=== PATIENT | male | born 1950 | race African-American/Black ===

== ENCOUNTER 2024-04-16 15:25 | Emergency (ER) | payer OTHER ==
[~2024-04-16] VITALS: Ht 190.5 cm; Wt 98.0 kg
[2024-04-16] MEDS: SODIUM CHLORIDE 0.9% 1,000 ML IV ONE (15:45)
[2024-04-16 16:05] LABS: Basophils # (auto) 0 10 ^3/uL (0-0.2); Basophils % (auto) 0.5 % (0.0-2.0); Eosinophils # (auto) 0.3 10 ^3/uL (0-0.8); Eosinophils % (auto) 5.5 % (0.0-7.0); Hematocrit 32.8 % (41.0-53.0); Hemoglobin 11.3 g/dL (13.5-17.5); Lymphocytes # (auto) 2.4 10 ^3/uL (0.4-5.4); Lymphocytes % (auto) 44.5 % (10.0-50.0); Mean Corpuscular Hgb Conc. 34.3 g/dL (32.0-36.0); Mean Corpuscular Volume 96.2 fL (80.0-100.0); Monocytes # (auto) 0.5 10 ^3/uL (0-1.3); Monocytes % (auto) 9.6 % (0.0-12.0); Neutrophils # (auto) 2.2 10 ^3/uL (1.6-8.6); Neutrophils % (auto) 39.9 % (37.0-80.0); Nucleated Red Blood Cells % 0.1 %; Red Blood Cells 3.41 10^6/uL (4.5-5.90); Red Cell Distribution Width 16.8 % (11.8-14.3); White Blood Cell 5.4 10^3/uL (4.4-10.8)
[2024-04-16 16:20] LABS: Chloride 98 mmol/L (98-107); Sodium 137 mmol/L (136-145)
[2024-04-16 16:21] LABS: Anion Gap 9 (5-15); Carbon Dioxide 30 mmol/L (20-30)
[2024-04-16 16:22] LABS: Calcium 9.4 mg/dL (8.7-10.4)
[2024-04-16 16:26] LABS: BUN/Creatinine Ratio 5.9 (10.0-20.0); Blood Urea Nitrogen 8 mg/dL (9-23); Glucose 106 mg/dL (74-106)
[2024-04-16 16:37] LABS: Potassium 2.4 mmol/L (3.5-5.1)
[2024-04-16] MEDS: ONDANSETRON HCL 4 MG/2 ML VIAL ONE (16:43)
[2024-04-16] MEDS: ONDANSETRON HCL 4 MG/2 ML VIAL IV ONE (16:45)
[2024-04-16] MEDS: POTASSIUM EFFERVESENT TAB 25 MEQ PO ONE (17:47)
[2024-04-16] MEDS: POTASSIUM CHL 20MEQ/100ML 100 ML IV SCH (17:48)
[2024-04-16 17:59] VITALS: PULSE 96; RESP 16; O2SAT 100
[2024-04-16 19:35] VITALS: PULSE 86; RESP 16; O2SAT 97
[2024-04-16 22:23] VITALS: BP 115/57; PULSE 82; RESP 23; TEMP 98.2; O2SAT 97
[2024-04-16 22:26] LABS: Chloride 103 mmol/L (98-107); Potassium 3.1 mmol/L (3.5-5.1); Sodium 140 mmol/L (136-145)
[2024-04-16 22:27] LABS: Anion Gap 7 (5-15); Calcium 8.8 mg/dL (8.7-10.4); Carbon Dioxide 30 mmol/L (20-30)
[2024-04-16 22:32] LABS: BUN/Creatinine Ratio 6.1 (10.0-20.0); Blood Urea Nitrogen 8 mg/dL (9-23); Glucose 57 mg/dL (74-106)
== END 2024-04-16 22:55 | disposition short-term general hospital (02) ==
LOC: ER 15:25
DX: E87.6 Hypokalemia (principal)
CPT/HCPCS: 36415; 80048; 82962; 83735; 85025; 96361; 96365; 96366; 99285; J2405; J3480; J7030